=== PATIENT | male | born 1990 | race Caucasian/White ===

== ENCOUNTER 2018-04-02 21:02 | Inpatient (IN) | payer BC ==
[~2018-04-02] VITALS: Ht 180.3 cm; Wt 98.9 kg
[2018-04-02 21:07] VITALS: BP_SYST 152
--- NOTE | 2018-04-02 21:11 | NUR ---
Patient triaged and placed in waiting room. VSS and patient appears in no acute distress at this time. Accompanied by girlfriend, awaiting available bed, and MD notified of need for MSE.
--- NOTE | 2018-04-02 21:11 | NUR ---
Note [facility] in [facility] - 04/02/18 at 2111 by [email or web address] Patient triaged and placed in waiting room. VSS and patient appears in no acute distress at this time. Accompanied by Daughter, awaiting available bed, and MD notified of need for MSE.
--- NOTE | 2018-04-02 21:46 | NUR ---
Patient to ER bed 05 to gown for evaluation. Side rails up. Report given to HILARIO Schuster
--- NOTE | 2018-04-02 21:59 | NUR ---
ER at bedside examining patient.
--- NOTE | 2018-04-02 22:20 | NUR ---
portable x-ray in progress , tolerated well .
--- NOTE | 2018-04-02 23:30 | NUR ---
Patient resting quietly. No acute distress noted. Vital signs within normal range.
--- NOTE | 2018-04-03 00:35 | NUR ---
Note [facility] in [facility] - 04/03/18 at 0038 by BOOEDVINICIUS Patient resting quietly. No acute distress noted. Vital signs within normal range.
--- NOTE | 2018-04-03 00:38 | NUR ---
ER at bedside examining patient.
[2018-04-03] MEDS ORDERED: ENOXAPARIN SODIUM 100 MG/ML SYRINGE SUBCUT ONE (00:45)
--- NOTE | 2018-04-03 01:07 | NUR ---
# 20 gauge angiocath placed to lac. Use of asceptic technique. Opsite placed over site. Blood return noted. Blood for lab drawn from site. Flushed with 10 cc of normal saline. No evidence of infiltration noted. Patient tolerated well.
[2018-04-03 01:13] LABS: BASOPHILS # (AUTO) 0.1 K/uL (0.0-0.2); BASOPHILS % (AUTO) 0.8 % (0.0-2.0); EOSINOPHILS # (AUTO) 0.2 K/uL (0.0-0.4); EOSINOPHILS % (AUTO) 2.3 % (0.0-4.0); HEMATOCRIT 46.1 % (36-54); HEMOGLOBIN 15.9 g/dL (14.0-18.0); LYMPHOCYTES # (AUTO) 2.5 K/uL (1.0-5.5); LYMPHOCYTES % (AUTO) 37.6 % (20.5-51.5); MEAN CORPUSCULAR HEMOGLOBIN 31 pg (27-31); MEAN CORPUSCULAR HGB CONC 35 % (32-36); MEAN CORPUSCULAR VOLUME 89 fL (79.0-98.0); MONOCYTES # (AUTO) 0.6 K/uL (0.0-1.0); MONOCYTES % (AUTO) 8.5 % (1.7-9.3); NEUTROPHILS # (AUTO) 3.2 K/uL (1.8-7.7); NEUTROPHILS % (AUTO) 50.8 % (40.0-70.0); PLATELET COUNT (AUTO) 222 K/uL (130-430); RED CELL DISTRIBUTION WIDTH 11.5 % (9.0-15.0); WHITE BLOOD COUNT (AUTO) 6.6 K/uL (4.8-10.8)
[2018-04-03] MEDS ORDERED: ACETAMINOPHEN 325 MG TABLET PO PRN (01:15)
--- NOTE | 2018-04-03 01:17 | NUR ---
Patient will be admitted to care of Dr Sood. Admitted to med/surg unit. Will go to room 109c. Belongings list completed. Summary report printed. Report will be given at bedside.
[2018-04-03 01:28] LABS: CALCIUM 9.6 mg/dL (8.4-11.0); CREATININE 0.99 mg/dL (0.55-1.30); POTASSIUM 3.8 mmol/L (3.5-5.1)
[2018-04-03 01:29] LABS: PROTHROMBIN TIME 9.9 SECS (9.5-12.5)
--- NOTE | 2018-04-03 01:32 | NUR ---
ADMISSION NOTE Received patient from ER via elisabeth, received report from HILARIO CASILLAS. Patient admitted with diagnosis of DVT. Patient oriented to hospital routine, call light, toileting and safety-patient verbalized understanding.
[2018-04-03 01:33] LABS: ALBUMIN 4.1 g/dL (3.4-4.8); TOTAL BILIRUBIN 0.3 mg/dL (0.0-1.0)
[2018-04-03 01:40] VITALS: BP_SYST 122
--- NOTE | 2018-04-03 01:40 | NUR ---
OPENING NOTE RECEIVED PT REPORT FROM ED NURSE VINNY RN. PT AOX4, BROUGHT TO ROOM 109-C VIA GURNEY. RECEIVED PT ON HOSPITAL BED, PT RESTING COMFORTABLY. VITAL SIGNS WNL. CHEST RISE EVEN AND UNLABORED. NO SOB NOTED. NO DISTRESS NOTED. PT DENIES PAIN AT THIS TIME PT HAS LEFT AC 20 G[address]GE SL. SO AND PATIENT'S FATHER AT BEDSIDE. SAFETY MEASURES IN PLACE. WILL CONTINUE TO MONITOR PT.
[2018-04-03 01:44] VITALS: BP_SYST 122
--- NOTE | 2018-04-03 02:17 | NUR ---
CONSULTATION CALLED REASON FOR CONSULTATION: DVT WAS CONSULT CALLED? Y PERSON WHO WAS NOTIFIED: Anurag CONSULTING PHYSICIAN: oTmasz Robledo MAKE UP OPERATOR HELPER PHONE NUMBER: [phone] ORDERING PHYSICIAN: Dr. Sood
--- NOTE | 2018-04-03 03:32 | NUR ---
RN ROUNDS PT CURRENTLY RESTING IN BED COMFORTABLY WITH EYES CLOSED. GIRLFRIEND AND DAD AT BEDSIDE. CHEST RISE EVEN AND UNLABORED. NO SOB NOTED. NO RESPIRATORY DISTRESS NOTED. SAFETY MEASURES IN PLACE BED IN LOWEST POSITION, BED WHEELS LOCKED, BED ALARM ON, BED RAILS UP X2, CALL LIGHT WITHIN REACH, BEDSIDE TABLE WITHIN REACH. NO FURTHER NEEDS AT THIS TIME. WILL CONTINUE TO MONITOR.
--- NOTE | 2018-04-03 05:52 | NUR ---
RN ROUNDS PT CURRENTLY RESTING IN BED COMFORTABLY WITH EYES CLOSED. PT'S DAD AND SIGNIFICANT OTHER AT BEDSIDE. CHEST RISE EVEN AND UNLABORED. NO SOB NOTED. NO RESPIRATORY DISTRESS NOTED. SAFETY MEASURES IN PLACE BED IN LOWEST POSITION, BED WHEELS LOCKED, BED ALARM ON, BED RAILS UP X2, CALL LIGHT WITHIN REACH, BEDSIDE TABLE WITHIN REACH. NO FURTHER NEEDS AT THIS TIME. WILL CONTINUE TO MONITOR.
--- NOTE | 2018-04-03 07:06 | NUR ---
CLOSING NOTE WILL ENDORSE PT REPORT TO DAY SHIFT NURSE. PT CURRENTLY RESTING IN BED COMFORTABLY. CHEST RISE EVEN AND UNLABORED. NO SOB NOTED. NO RESPIRATORY DISTRESS NOTED. ALL SCHEDULED MEDICATIONS ADMINISTERED ORDERED. PT TOLERATED WELL. SAFETY MEASURES IN PLACE BED IN LOWEST POSITION, BED WHEELS LOCKED, BED ALARM ON, BED RAILS UP X2, CALL LIGHT WITHIN REACH, BEDSIDE TABLE WITHIN REACH. ALL NEEDS MET THROUGHOUT SHIFT. WILL CONTINUE TO MONITOR.
--- NOTE | 2018-04-03 07:25 | NUR ---
OPENING NOTE RECEIVED REPORT FROM DAY SHIFT NURSE. PT IS SLEEPING IN BED. PT IS ON RA, NO SOB NOTED. IV SITE IS SALINE LOCK. NO DISTRESS NOTED. SAFETY MEASURES BED IS TO LOWEST POSITION, SIDE RIALS UPX3, CALL LIGHT WITHIN REACH. WILL CONTINUE TO MONITOR.
[2018-04-03 08:22] VITALS: BP_SYST 100
--- NOTE | 2018-04-03 08:25 | NUR ---
MORNING MEDICATION ADMINISTERED LOVENOX. PT IS ASKING WHEN THE DOCTOR WILL COME AND WANT TO GO HOME. EXPLAINED TO PT MD ROUNDS ARE NOT AT A SET TIME. PT IS RESTING IN BED WITH VISITOR AT BEDSIDE. NO SOB NOTED. PT STATES PAIN IS 4/10, TOLERABLE FOR PT. SAFETY MEASURES IN PLACE, BED TO LOWEST POSITION, SIDE RAILS UPX2, CALL LIGHT WITHIN REACH. WILL CONTINUE TO MONITOR.
[2018-04-03] MEDS ORDERED: ENOXAPARIN SODIUM 100 MG/ML SYRINGE SUBCUT SCH (09:00)
--- NOTE | 2018-04-03 10:30 | NUR ---
ROUNDS PT IS RESTING IN BED WITH VISITOR AT BEDSIDE. NO SOB NOTED. SAFETY MEASURES IN PLACE, BED TO LOWEST POSITION, SIDE RAILS UPX2, CALL LIGHT WITHIN REACH. WILL CONTINUE TO MONITOR.
[2018-04-03 12:00] VITALS: BP_SYST 126
--- NOTE | 2018-04-03 12:25 | NUR ---
ROUNDS PT IS WATCHING TV. NO DISTRESS NOTED. PT STATES PAIN IS 5/10, TOLERABLE FOR PT. SAFETY MEASURES IN PLACE, BED TO LOWEST POSITION, SIDE RAILS UPX2, CALL LIGHT WITHIN REACH. WILL CONTINUE TO MONITOR.
--- NOTE | 2018-04-03 14:25 | NUR ---
MD ROUNDS DR. STALLWORTH SAW PT
--- NOTE | 2018-04-03 14:31 | NUR ---
ROUNDS PT IS IN BED WATCHING TV. NO SOB NOTED. NO DISTRESS NOTED. SAFETY MEASURES IN PLACE, BED TO LOWEST POSITION, SIDE RAILS UPX2, CALL LIGHT WITHIN REACH.
[2018-04-03] MEDS ORDERED: RIVA15TA PO (15:38)
[2018-04-03] MEDS ORDERED: RIVA20TA PO (15:38)
[2018-04-03 16:00] VITALS: BP_SYST 120
--- NOTE | 2018-04-03 16:09 | NUR ---
ROUNDS DR. FINNEGAN SAW PT. PT IS GETTING MEDICATION FROM OUTSIDE PHARMACY TO GET DISCHARGED. PT IS IN BED WATCHING TV. NO DISTRESS NOTED. ALL NEEDS MET AT THIS TIME. SAFETY MEASURES BED IS TO LOWEST POSITION, SIDE RIALS UPX2, CALL LIGHT WITHIN REACH. WILL CONTINUE TO MONITOR.
[2018-04-03 17:32] VITALS: BP_SYST 100
== END 2018-04-03 18:05 | disposition home or self-care (01) | DRG 301 ==
LOC: SED 21:02 → SMU 04-03 01:10
PROVIDERS: ADMIT Internal Medicine; ATTEND Internal Medicine
DX: I82.432 Acute embolism and thrombosis of left popliteal vein (principal); E66.9 Obesity, unspecified; W19.XXXA Unspecified fall, initial encounter; Z79.01 Long term (current) use of anticoagulants; Y93.89 Activity, other specified; Y92.89 Other specified places as the place of occurrence of the external cause; Y99.8 Other external cause status; Z68.30 Body mass index [BMI] 30.0-30.9, adult
CPT/HCPCS: 36415; 73564; 80053; 85025; 85610-TC; 93971; 96372; 99285; J1650